=== PATIENT | male | born 2005 | race Caucasian/White ===

== ENCOUNTER → 2024-07-21 | Outpatient (CLI) | payer BC, SELFPAY ==
[2024-07-21 17:58] LABS: Syphilis Nonreactive (Nonreactive)
[2024-07-21 18:22] LABS: Hepatitis A Antibody IgM Non Reactive (Non React); Hepatitis B Core Antibody IgM Non Reactive (Non React); Hepatitis B Surface Antigen Non Reactive (Non React); Hepatitis C Antibody Non Reactive (Non React)
[2024-07-22 09:01] LABS: Chlamydia trachomatis PCR Negative (Not Detect); Neisseria Gonorrhoeae DNA PCR Negative (Not Detect); Trichomonas Negative (Negative)
[2024-07-25 07:01] LABS: HIV Ag/Ab, 4th Gen NON-REACTIVE
== END | disposition home or self-care (01) ==
LOC: COPL 16:41
PROVIDERS: PCP Student in an Organized Health Care Education/Training Program; Referring Provider Student in an Organized Health Care Education/Training Program; Visit Provider Student in an Organized Health Care Education/Training Program
DX: Z11.3 Encounter for screening for infections with a predominantly sexual mode of transmission (principal)
CPT/HCPCS: 36415; 80074; 86780; 87389; 87491; 87591; 87661